=== PATIENT | male | born 1980 ===

== ENCOUNTER 2019-07-06 17:03 | Emergency (ER) | payer SELFPAY ==
--- NOTE | 2019-07-06 19:04 | Emergency Department Report ---
Blank Doc - Documentation Documentation: 38-year-old male that presents with headache and uncontrolled HTN. This initial assessment/diagnostic orders/clinical plan/treatment(s) is/are subject to change based on patient's health status, clinical progression and re- assessment by fellow clinical providers in the ED. Further treatment and workup at subsequent clinical providers discretion. Patient/guardians urged not to elope from the ED as their condition may be serious if not clinically assessed and managed. Initial orders include: 1- Patient sent to [facility] for further evaluation and treatment 2- CT head
--- NOTE | 2019-07-06 21:11 | Cat Scan Report ---
CT HEAD WITHOUT CONTRAST INDICATION / CLINICAL INFORMATION: headache. TECHNIQUE: All CT scans at this location are performed using CT dose reduction for ALARA by means of automated e xposure control. COMPARISON: None available. FINDINGS: HEMORRHAGE: No evidence of intracranial hemorrhage or extra-axial fluid collection. EXTRA-AXIAL SPACES: Cortical sulci, sylvian fissures and basilar cisterns have an unremarkable appear ance. VENTRICULAR SYSTEM: The ventricular system is of normal size and configuration. CEREBRAL PARENCHYMA: No areas of abnormal brain parenchymal attenuation are identified. There is no i ndication of recent infarction. MIDLINE SHIFT OR HERNIATION: There is no mass effect. CEREBELLUM / BRAINSTEM: Brainstem and cerebellum have an unremarkable appearance. INTRACRANIAL VESSELS:No abnormalities are identified on this noncontrast head CT. ORBITS: visualized portions of the orbits have an unremarkable appearance. SOFT TISSUES of HEAD: No significant abnormality. CALVARIUM: Evaluation of bone windows reveals no abnormalities. PARANASAL SINUSES / MASTOID AIR CELLS: Mucosal thickening is present within several anterior ethmoid air cells on the right. Paranasal sinuses are otherwise free from inflammatory mucosal disease. Masto id air cells are normally pneumatized. IMPRESSION: 1. No intracranial abnormalities are identified on head CT without contrast. Signer Name: Jh Willis MD Signed: 07/06/2019 9:07 PM Workstation Name: [id number]
[2019-07-06] MEDS ORDERED: ALBUTEROL 2.5 MG/3 ML NEBU IH ONE (21:37)
[2019-07-06] MEDS ORDERED: cloNIDine 0.2 MG TAB PO ONE (21:38)
--- NOTE | 2019-07-06 21:50 | Emergency Department Report ---
ED General Adult HPI - General Chief complaint: Headache Stated complaint: ASTHMA/HBP Time Seen by Provider: 07/06/19 19:02 Source: patient Mode of arrival: Ambulatory Limitations: No Limitations - History of Present Illness Initial comments: This is a 38-year-old male with the past medical history of hypertension and asthma who presents the ED today complaining of having headache that began today. Patient states headache is localized to his temples but resolved earlier today. Patient also states he has been out of his blood pressure medication for the past week as well as his inhaler and albuterol for his asthma. Patient states that head pain is resolved he denies any trauma or injuries to the head. He denies blurry vision nausea vomiting or diarrhea. - Related Data Previous Rx's Medication Instructions Recorded Last Taken Type ALBUTEROL NEB's [Proventil 0.083% 2.5 mg IH TID PRN #1 pack 07/06/19 Unknown Rx NEBS] Albuterol INH(or & Nicu Only) 2 puff IH QID PRN #8.5 gram 07/06/19 Unknown Rx [ProAir HFA Inhaler] lisinopriL [Zestril TAB] 10 mg PO QDAY #30 tablet 07/06/19 Unknown Rx Allergies Allergy/AdvReac Type Severity Reaction Status Date / Time No Known Allergies Allergy Unverified 07/06/19 19:04 ED Review of Systems ROS: Stated complaint: ASTHMA/HBP Other details as noted in HPI Comment: All other systems reviewed and negative ED Past Medical Hx - Past Medical History Previous Medical History?: Yes Hx Hypertension: Yes Hx Asthma: Yes - Surgical History Past Surgical History?: No - Social History Smoking Status: Never Smoker Substance Use Type: Alcohol - Medications Home Medications: Home Medications Medication Instructions Recorded Confirmed Last Taken Type ALBUTEROL NEB's [Proventil 0.083% 2.5 mg IH TID PRN #1 pack 07/06/19 Unknown Rx NEBS] Albuterol INH(or & Nicu Only) 2 puff IH QID PRN #8.5 gram 07/06/19 Unknown Rx [ProAir HFA Inhaler] lisinopriL [Zestril TAB] 10 mg PO QDAY #30 tablet 07/06/19 Unknown Rx ED Physical Exam - General Limitations: No Limitations General appearance: alert, in no apparent distress - Head Head exam: Present: atraumatic, normocephalic - Eye Eye exam: Present: normal appearance, PERRL Pupils: Present: normal accommodation - ENT ENT exam: Present: mucous membranes moist - Neck Neck exam: Present: normal inspection - Respiratory Respiratory exam: Present: normal lung sounds bilaterally, wheezes (Mildly). Absent: respiratory distress - Cardiovascular Cardiovascular Exam: Present: regular rate, normal rhythm. Absent: systolic murmur, diastolic murmur, rubs, gallop - GI/Abdominal GI/Abdominal exam: Present: soft, normal bowel sounds - Rectal Rectal exam: Present: deferred - Extremities Exam Extremities exam: Present: normal inspection, full ROM - Back Exam Back exam: Present: normal inspection, full ROM - Neurological Exam Neurological exam: Present: alert, oriented X3, CN II-XII intact, normal gait - Psychiatric Psychiatric exam: Present: normal affect, normal mood - Skin Skin exam: Present: warm, dry, intact, normal color. Absent: rash ED Course Vital Signs 07/06/19 07/06/19 17:50 19:02 Temperature 98.8 F 98.8 F Pulse Rate 94 H 95 H Respiratory 20 20 Rate Blood Pressure 165/110 165/110 O2 Sat by Pulse 99 99 Oximetry ED Medical Decision Making - Radiology Data Radiology results: report reviewed, image reviewed CT HEAD WITHOUT CONTRAST INDICATION / CLINICAL INFORMATION: headache. TECHNIQUE: All CT scans at this location are performed using CT dose reduction for ALARA by means of automated exposure control. COMPARISON: None available. FINDINGS: HEMORRHAGE: No evidence of intracranial hemorrhage or extra-axial fluid collection. EXTRA-AXIAL SPACES: Cortical sulci, sylvian fissures and basilar cisterns have an unremarkable appearance. VENTRICULAR SYSTEM: The ventricular system is of normal size and configuration. CEREBRAL PARENCHYMA: No areas of abnormal brain parenchymal attenuation are identified. There is no indication of recent infarction. MIDLINE SHIFT OR HERNIATION: There is no mass effect. CEREBELLUM / BRAINSTEM: Brainstem and cerebellum have an unremarkable appearance. INTRACRANIAL VESSELS:No abnormalities are identified on this noncontrast head CT. ORBITS: visualized portions of the orbits have an unremarkable appearance. SOFT TISSUES of HEAD: No significant abnormality. CALVARIUM: Evaluation of bone windows reveals no abnormalities. PARANASAL SINUSES / MASTOID AIR CELLS: Mucosal thickening is present within several anterior ethmoid air cells on the right. Paranasal sinuses are otherwise free from inflammatory mucosal disease. Mastoid air cells are normally pneumatized. IMPRESSION: 1. No intracranial abnormalities are identified on head CT without contrast. Signer Name: Jh Willis MD Signed: 07/06/2019 9:07 PM Workstation Name: [id number] Transcribed By: Dictated By: Jh Willis MD Electronically Authenticated By: Jh Willis MD Signed Date/Time: 07/06/192106 - Medical Decision Making This 38-year-old male who presented with headache most likely secondary to uncontrolled hypertension. Patient did state that the headache has resolved. Patient did receive a breathing treatment while in the emergency department. Patient received clonidine 0.1, blood pressure reduced. Patient is in no acute or respiratory distress. Discussed with patient to follow-up with primary care physician. Referrals given. Vital signs are normal CT scan shows no abnormal findings. Critical care attestation.: If time is entered above; I have spent that time in minutes in the direct care of this critically ill patient, excluding procedure time. ED Disposition Clinical Impression: Uncontrolled hypertension, Acute headache with normal neurologic examination, Asthma exacerbation Disposition: DC-01 TO HOME OR SELFCARE Is pt being admited?: No Does the pt Need Aspirin: No Condition: Stable Instructions: Hypertension (ED), Asthma (ED) Additional Instructions: Make sure to follow up with the primary care physician as discussed. Take all your medications as you've been prescribed. If you have any worsening symptoms or develop new symptoms please return to ED immediately. Prescriptions: Albuterol INH(or & Nicu Only) [ProAir HFA Inhaler] 2 puff IH QID PRN #8.5 gram PRN Reason: Shortness Of Breath ALBUTEROL NEB's [Proventil 0.083% NEBS] 2.5 mg IH TID PRN #1 pack PRN Reason: Wheezing lisinopriL [Zestril TAB] 10 mg PO QDAY #30 tablet Referrals: PRIMARY CARE, [Primary Care Provider] - 3-5 Days [facility] [Outside] - 3-5 Days [facility] [Outside] - 3-5 Days [facility] [Outside] - 3-5 Days Forms: Work/School Release Form(ED) Time of Disposition: 21:53
[2019-07-06] MEDS ORDERED: cloNIDine 0.1 MG TAB ONE (23:03)
[2019-07-06 23:10] VITALS: BP 196/112
== END 2019-07-06 23:34 | disposition home or self-care (01) ==
LOC: ED 17:03
DX: J45.901 Unspecified asthma with (acute) exacerbation (principal); I10 Essential (primary) hypertension; Z79.899 Other long term (current) drug therapy
CPT/HCPCS: 70450; 94640; 94644; 99283